=== PATIENT | male | born 1965 | race Caucasian/White ===

== ENCOUNTER 2020-04-27 02:17 | Inpatient (IN) | payer SELFPAY ==
[2020-04-27 02:46] LABS: #Basophils 0.1 thou/uL (0.0-0.2); #Eosinphils 0.1 thou/uL (0.0-0.7); #Lymphocytes 2.9 thou/uL (1.20-3.40); #Monocytes 0.4 thou/uL (0.11-0.59); #Neutrophils 5.1 thou/uL (1.40-6.50); %Basophils 0.9 % (0.0-1.0); %Eosinophils 1.1 % (0.0-10.0); %Lymphocytes 33.8 % (21.0-51.0); %Monocytes 4.6 % (0.0-10.0); %Neutrophils 59.6 % (42.0-75.0); Hemoglobin 15.6 g/dL (14.0-18.0); Mean Corpuscular Hemoglobin 31.7 pg (27.0-31.0); Mean Corpuscular Volume 90.7 fL (78.0-98.0); Mean Platelet Volume 7.1 fL (7.4-10.4); Platelet Count 185 thou/uL (130-400); RBC Distribution Width 12.3 % (11.5-14.5); Red Blood Cell (RBC) Count 4.91 mill/uL (4.70-6.10); White Blood Cell (WBC) Count 8.6 thou/uL (4.8-10.8)
[2020-04-27 03:09] LABS: ALT (SGPT) 19 U/L (8-55); AST (SGOT) 9 U/L (5-34); Alkaline Phosphatase 73 U/L (40-110); Anion Gap 13 mmol/L (10-20); BUN (Urea Nitrogen) 11 mg/dL (8.4-25.7); Bilirubin, Total 0.7 mg/dL (0.2-1.2); Calc. Creatinine Clearance 0 mL/min (70-130); Calcium 8.9 mg/dL (7.8-10.44); Carbon Dioxide 25 mmol/L (22-29); Chloride 102 mmol/L (98-107); Globulin 3.2 g/dL (2.4-3.5); Glucose 104 mg/dL (70-105); Lipase 14 U/L (8-78); Potassium 3.3 mmol/L (3.5-5.1); Protein, Total 7.2 g/dL (6.0-8.3); Sodium 137 mmol/L (136-145)
[2020-04-27] MEDS ORDERED: Aspirin Chewable 81 MG TAB ONE (03:33)
[2020-04-27] MEDS ORDERED: Morphine 4 MG/ML VIAL ONE ×2 (03:33→05:31)
[2020-04-27] MEDS ORDERED: Ondansetron PF 4 MG/2 ML Vial ONE ×2 (03:39→05:31)
[2020-04-27 03:58] LABS: Digoxin Less than 0.15 ng/mL (0.8-2.0)
[2020-04-27 06:03] LABS: Troponin I Less than 0.010 ng/mL (< 0.028)
[2020-04-27] MEDS ORDERED: Morphine 4 MG/ML VIAL SLOW IVP PRN (07:39)
[2020-04-27 08:48] VITALS: BMI 41.0
[2020-04-27] MEDS ORDERED: Morphine 2 MG/ML VIAL SLOW IVP PRN (09:32)
[2020-04-27 09:44] LABS: Troponin I 0.014 ng/mL (< 0.028)
[2020-04-27] MEDS ORDERED: Aspirin 81 mg Enteric Coated Tablet PO SCH (09:45)
[2020-04-27] MEDS ORDERED: Enoxaparin Sodium 40 MG/0.4 ML SYRINGE SC SCH (09:45)
[2020-04-27 09:54] LABS: Cardiac Risk 8.4 (Less than 4.5)
[2020-04-27] MEDS ORDERED: Carvedilol 6.25 MG TAB PO SCH (10:00)
[2020-04-27] MEDS ORDERED: Potassium Chloride 20 MEQ TAB PO SCH (10:00)
[2020-04-27] MEDS ORDERED: Ondansetron ODT 4 MG TAB PO PRN (10:40)
[2020-04-27] MEDS ORDERED: Iopamidol-370 76% 500 ML 1 ML ONE (12:01)
[2020-04-27] MEDS ORDERED: Guaifenesin DM 100-10/5 ML UDCUP PO PRN (12:35)
[2020-04-27] MEDS ORDERED: Acetaminophen 325 MG TAB PO PRN (12:35)
[2020-04-27] MEDS ORDERED: Acetaminophen 650 MG Suppository PR PRN (12:35)
[2020-04-27] MEDS ORDERED: Senokot S 8.6-50 MG TAB PO PRN (12:35)
[2020-04-27] MEDS ORDERED: HYDROcodone/Acetaminophen 5/325 mg Tablet PO PRN (12:35)
[2020-04-27 13:55] LABS: SARS-CoV-2 PCR by NAA Not Detected (NotDetected)
[2020-04-27] MEDS: HYDROcodone/Acetaminophen 5/325 mg Tablet PO PRN ×3 (14:07→22:25)
[2020-04-27] MEDS: Carvedilol 6.25 MG TAB PO SCH (17:13)
[2020-04-27] MEDS ORDERED: Communication Order-Pharmacy FS SCH (18:30)
[2020-04-27] MEDS: Ondansetron PF 4 MG/2 ML Vial IVP PRN (20:51)
[2020-04-27] MEDS: Rosuvastatin 20 MG TAB PO SCH (20:56)
[2020-04-27] MEDS: Famotidine 20 MG TAB PO SCH (20:56)
[2020-04-28] MEDS: HYDROcodone/Acetaminophen 5/325 mg Tablet PO PRN ×3 (03:30→21:24)
[2020-04-28] MEDS: Famotidine 20 MG TAB PO SCH ×2 (05:04→21:24)
[2020-04-28] MEDS: Carvedilol 6.25 MG TAB PO SCH ×2 (05:04→15:44)
[2020-04-28 05:41] LABS: #Eosinphils 0.2 thou/uL (0.0-0.7); #Lymphocytes 2.7 thou/uL (1.20-3.40); #Monocytes 0.4 thou/uL (0.11-0.59); #Neutrophils 2.3 thou/uL (1.40-6.50); %Basophils 0.6 % (0.0-1.0); %Eosinophils 2.8 % (0.0-10.0); %Lymphocytes 48.1 % (21.0-51.0); %Monocytes 7.3 % (0.0-10.0); %Neutrophils 41.2 % (42.0-75.0); Mean Corpuscular HGB CONC 33.7 g/dL (32.0-36.0); Mean Corpuscular Hemoglobin 30.8 pg (27.0-31.0); Mean Corpuscular Volume 91.3 fL (78.0-98.0); Mean Platelet Volume 7.2 fL (7.4-10.4); Platelet Count 176 thou/uL (130-400); RBC Distribution Width 12.3 % (11.5-14.5); Red Blood Cell (RBC) Count 4.55 mill/uL (4.70-6.10); White Blood Cell (WBC) Count 5.6 thou/uL (4.8-10.8)
[2020-04-28 06:00] LABS: Anion Gap 11 mmol/L (10-20); BUN (Urea Nitrogen) 11 mg/dL (8.4-25.7); Calc. Creatinine Clearance 183 mL/min (70-130); Calcium 8.6 mg/dL (7.8-10.44); Carbon Dioxide 25 mmol/L (22-29); Chloride 104 mmol/L (98-107); Glucose 100 mg/dL (70-105); Sodium 136 mmol/L (136-145)
[2020-04-28] MEDS: Ondansetron PF 4 MG/2 ML Vial IVP PRN (06:30)
[2020-04-28] MEDS ORDERED: Lidocaine 1% (PF) 30 ML VIAL ONE (07:50)
[2020-04-28] MEDS ORDERED: Midazolam HCl 2 mg/2 ml Vial ONE (08:26)
[2020-04-28] MEDS ORDERED: Fentanyl 100 MCG/2 ML VIAL ONE (08:27)
[2020-04-28] MEDS ORDERED: Enoxaparin Sodium 40 MG/0.4 ML SYRINGE SC SCH (09:00)
[2020-04-28] MEDS ORDERED: Losartan 25 MG TAB PO SCH (09:00)
[2020-04-28] MEDS ORDERED: Nitroglycerin 0.4 MG TAB (25 Tab Bottle) SL PRN (09:09)
[2020-04-28] MEDS ORDERED: Sodium Chloride 0.9% 200 ML IV PRN (09:09)
[2020-04-28] MEDS ORDERED: Acetaminophen/Codeine 30-300mg Tablet PO PRN ×2 (09:09)
[2020-04-28] MEDS: Aspirin 81 mg Enteric Coated Tablet PO SCH (10:39)
[2020-04-28] MEDS ORDERED: Cyclobenzaprine 10 MG TAB PO PRN (11:31)
[2020-04-28] MEDS ORDERED: Iopamidol 370 76% 100 ML VIAL ONE (11:57)
[2020-04-28] MEDS ORDERED: Carvedilol 6.25 MG TAB PO SCH (17:45)
[2020-04-28] MEDS: Bismuth Subs 17.5 mg/mL Susp PO SCH ×2 (21:22→21:23)
[2020-04-28] MEDS: Rosuvastatin 20 MG TAB PO SCH (21:24)
[2020-04-29 03:56] VITALS: TEMP 98.2
[2020-04-29] MEDS: HYDROcodone/Acetaminophen 5/325 mg Tablet PO PRN ×2 (03:59→09:48)
[2020-04-29] MEDS: Aspirin 81 mg Enteric Coated Tablet PO SCH (07:50)
[2020-04-29] MEDS: Famotidine 20 MG TAB PO SCH (07:51)
[2020-04-29 07:52] VITALS: BP 126/68
[2020-04-29] MEDS ORDERED: Carvedilol 6.25 MG TAB PO SCH (08:00)
[2020-04-29] MEDS ORDERED: Losartan 25 MG TAB PO SCH (09:00)
[2020-04-30] MEDS ORDERED: Spironolactone 25 MG TAB PO SCH (08:00)
== END 2020-04-29 10:29 | disposition home or self-care (01) | DRG 287 ==
LOC: ERS 02:17 → 3SE 05:21 → OBSVTOIN 04-28 11:25 → 2NO 04-28 17:49
PROVIDERS: ADMIT Internal Medicine; ATTEND Internal Medicine
PROC: 4A023N7 Measurement of Cardiac Sampling and Pressure, Left Heart, Percutaneous Approach (ICD-10-PCS; principal; 2020-04-28)
PROC: B2111ZZ Fluoroscopy of Multiple Coronary Arteries using Low Osmolar Contrast (ICD-10-PCS; 2020-04-28)
DX: R07.89 Other chest pain (principal); I50.22 Chronic systolic (congestive) heart failure; I42.9 Cardiomyopathy, unspecified; Z68.41 Body mass index [BMI] 40.0-44.9, adult; I25.10 Atherosclerotic heart disease of native coronary artery without angina pectoris; I11.0 Hypertensive heart disease with heart failure; F17.210 Nicotine dependence, cigarettes, uncomplicated; E87.6 Hypokalemia; E78.5 Hyperlipidemia, unspecified; E66.01 Morbid (severe) obesity due to excess calories; Z20.822 Contact with and (suspected) exposure to COVID-19; Z79.82 Long term (current) use of aspirin; Z95.5 Presence of coronary angioplasty implant and graft; Z71.6 Tobacco abuse counseling; Z91.14 Patient's other noncompliance with medication regimen
CPT/HCPCS: 36415; 70450; 70496; 70498; 71045; 71275; 74174; 76942; 80048; 80053; 80061; 80162; 83690; 83880; 84484; 85025; 85379; 87635; 93005; 93306; 93458; 96372; 96376; 97139; 99152; 99153; G0378; J1644; J1650; J2001; J2250; J2270; J2405; J3010; Q9967; U0003; U0005